=== PATIENT | female | born 1985 | race Caucasian/White ===

== ENCOUNTER 2021-05-26 16:52 | Emergency (ER) | payer OTHER, SELFPAY ==
[2021-05-26 17:05] VITALS: BP 130/84; PULSE 82; RESP 18; TEMP 37.1; O2SAT 98
--- NOTE | 2021-05-26 17:31 | ED.GENADULT ---
HPI - General Adult General Chief complaint: Upper Respiratory Infection Stated complaint: sinus pressure Source: patient Mode of arrival: ambulatory Limitations: no limitations History of Present Illness HPI narrative: 36 y/o female. PMHx: None reported. Presents to [facility] today with acute complaints of sinus congestion, purulent nasal discharge, facial 'pressure' and pain 'behind her teeth' for the past 3-4 weeks. Client reports that she has tried doctoring herself at home with only worsening. No fevers. No JIMENES, sore throat, Otalgia. No cough, chest congestion, chest pain. Pt is without additional acute c/o illness upon PE. Related Data Allergies Allergy/AdvReac Type Severity Reaction Status Date / Time amoxicillin Allergy Unknown Unknown Verified 05/26/21 17:20 Penicillins Allergy Unknown Unknown Verified 05/26/21 17:20 CEPHALEXIN MONOHYDRATE Allergy Unknown Unknown Uncoded 05/26/21 17:20 Review of Systems Review of Systems: CONSTITUTIONAL: Denies fever, chills, sweats. EYES: Denies visual changes, redness, discharge. ENT: Positive rhinorrhea, congestion. No sore throat, otalgia. CARDIOVASCULAR: Denies chest pain, palpitations, edema. RESPIRATORY: Denies dyspnea, wheezing, cough GASTROINTESTINAL: Denies abdominal pain, nausea, vomiting, diarrhea. GENITOURINARY: Denies dysuria, hematuria, abnormal discharge SKIN: Denies rash or itching. MUSCULOSKELETAL: Denies acute back pain, joint pain, or myalgia. NEUROLOGIC: Denies numbness, or focal weakness. PSYCHIATRIC: Denies anxiety or depression. All systems reviewed & are unremarkable except as noted in HPI and below Exam Narrative: GENERAL: This is a well-nourished, well-developed adult, in no apparent distress. HEAD: normocephalic, atraumatic. EYES: PERRL. Sclera clear/white. EARS: External ears normal, auditory canals clear and without drainage, TMs normal. NOSE: External nose normal. Positive Rhinorrhea purulent nasal discharge, maxillary facial pressure, nares patent. THROAT: Mucous membranes moist, posterior pharynx clear. No exudates. NECK: Neck supple, non-tender without lymphadenopathy, masses or thyromegaly. CARDIOVASCULAR: Regular rate and rhythm without murmurs, gallops, or rubs. RESPIRATORY: Clear to auscultation. Breath sounds equal bilaterally. No wheezes, rales, or rhonchi. GASTROINTESTINAL: Abdomen soft, non-tender, nondistended. Bowel sounds are active. No guarding. SKIN: warm, intact with no suspicious lesions or rash, good texture and turgor. NEURO: Alert, active, and age appropriate. No focal neurologic deficits. Course Vital Signs Vital signs: Vital Signs Temperature 37.1 C 05/26/21 17:05 Pulse Rate 82 05/26/21 17:05 Respiratory Rate 18 05/26/21 17:05 Blood Pressure 130/84 05/26/21 17:05 Pulse Oximetry 98 05/26/21 17:05 Temperature 37.1 C 05/26/21 17:05 Pulse Rate 82 05/26/21 17:05 Respiratory Rate 18 05/26/21 17:05 Blood Pressure 130/84 05/26/21 17:05 Pulse Oximetry 98 05/26/21 17:05 Medical Decision Making Differential Diagnosis Differential Diagnosis: Differential Diagnosis: Consideration of the following conditions may be warranted for the presenting problem, they are not final diagnoses: upper respiratory infection, otitis media, sinusitis, RSV viral infection, bronchitis, pharyngitis, Streptococcal sore throat, COVID-19, and other. Medical Records Medical records reviewed: Yes I reviewed the external patient's medical records. Vital Signs Vital Signs: Vital Signs Temperature 37.1 C 05/26/21 17:05 Pulse Rate 82 05/26/21 17:05 Respiratory Rate 18 05/26/21 17:05 Blood Pressure 130/84 05/26/21 17:05 Pulse Oximetry 98 05/26/21 17:05 Temperature 37.1 C 05/26/21 17:05 Pulse Rate 82 05/26/21 17:05 Respiratory Rate 18 05/26/21 17:05 Blood Pressure 130/84 05/26/21 17:05 Pulse Oximetry 98 05/26/21 17:05 Critical Care Time Critical Care T
== END 2021-05-26 17:30 | disposition home or self-care (01) ==
PROVIDERS: Emergency Provider Nurse Practitioner Adult Health; PCP Nurse Practitioner Adult Health
DX: J01.00 Acute maxillary sinusitis, unspecified (principal)
CPT/HCPCS: 99213; G0463

== ENCOUNTER 2021-09-09 12:30 | Emergency (ER) | payer OTHER, SELFPAY ==
[2021-09-09 12:40] VITALS: BP 141/82; PULSE 78; RESP 16; TEMP 37.1; O2SAT 99
--- NOTE | 2021-09-09 12:55 | ED.GENADULT ---
HPI - General Adult General Chief complaint: Dental/Oral Stated complaint: Toothache/Sinus Pain Time Seen by Provider: 09/09/21 12:55 Source: patient Mode of arrival: ambulatory Limitations: no limitations History of Present Illness HPI narrative: 36-year-old female presented for complaint of left lower dental pain for 4 months and over the last 5 days sinus congestion, pressure, left-sided headache and ear pain. Also endorses occasional cough and wheezing. Denies associated nausea, vomiting, diarrhea, fever or chills. Taking Tylenol Sinus and ibuprofen for symptoms. She is scheduled with her dentist in 1 week for extraction. Tooth is broken and crown has come off. She is not vaccinated for COVID or flu, she states she has been tested many times and has a similar symptoms, and always a sinus infection. Related Data Allergies Allergy/AdvReac Type Severity Reaction Status Date / Time amoxicillin Allergy Unknown Unknown Verified 09/09/21 12:49 Penicillins Allergy Unknown Unknown Verified 09/09/21 12:49 CEPHALEXIN MONOHYDRATE Allergy Unknown Unknown Uncoded 05/26/21 17:20 Review of Systems Review of Systems: CONSTITUTIONAL: Denies body aches, fever, chills ENT: Endorses dental pain, rhinorrhea, congestion, otalgia. CARDIOVASCULAR: Denies chest pain, palpitations RESPIRATORY: Endorses cough denies dyspnea. SKIN: Denies rash, itching, or wounds. MUSCULOSKELETAL: Denies myalgia. NEUROLOGIC: Denies headache, numbness, tingling, or weakness. PMFSH Comments At time of signature, I have reviewed and agree with nursing past medical, surgical, social and family history unless otherwise noted. Please see nursing chart for further information. There is no relevant family history pertinent to the presenting complaint Exam Narrative: GENERAL: Appears in pain; ill-appearing HEAD: Normocephalic, atraumatic. EYES: EOMI. No redness or drainage. Conjunctivae normal. ENT: Mucous membranes pink and moist. TMs normal bilateral, canals erythematous. Throat normal. Uvula midline. Left lower dental #18 broken tooth, no apparent abscess formation NECK: Normal AROM. Supple. No lymphadenopathy. CHEST: No respiratory distress. Clear to auscultation. HEART: Regular rate and rhythm. No murmur appreciated. ABDOMEN: Soft, nontender, nondistended, normal active bowel sounds. SKIN: Warm, dry, no rash. Normal skin turgor. NEURO: No focal deficits. Alert and oriented x3. Gait steady. Course Course Emergency Course: Patient is aware of diagnosis, understands and agrees to treatment plan. Anticipatory guidance given. Patient agrees to follow-up as directed and is aware of reasons to seek care at the emergency department. Portions of this record may have been created with voice recognition software Level of Care: Express Care Visit Vital Signs Vital signs: Vital Signs Temperature 98.7 F 09/09/21 12:40 Pulse Rate 78 09/09/21 12:40 Respiratory Rate 16 09/09/21 12:40 Blood Pressure 141/82 H 09/09/21 12:40 Pulse Oximetry 99 09/09/21 12:40 Temperature 98.7 F 09/09/21 12:40 Pulse Rate 78 09/09/21 12:40 Respiratory Rate 16 09/09/21 12:40 Blood Pressure 141/82 H 09/09/21 12:40 Pulse Oximetry 99 09/09/21 12:40 Medical Decision Making MDM Narrative Medical decision making narrative: Patient is scheduled with a dentist in 1 week, will provide antibiotics to cover dental infection as well as sinus infection. She can continue her current [id number] pain remedies. Aware of signs and symptoms to watch for requiring emergent care. Differential Diagnosis Differential Diagnosis: Influenza, covid, sinusitis, OM, strep pharyngitis, URI Vital Signs Vital Signs: Vital Signs Temperature 98.7 F 09/09/21 12:40 Pulse Rate 78 09/09/21 12:40 Respiratory Rate 16 09/09/21 12:40 Blood Pressure 141/82 H 09/09/21 12:40 Pulse Oximetry 99 09/09/21 12:40 Temperature 98.7 F 09/09/21 12:40 Pulse Rate 7
== END 2021-09-09 13:14 | disposition home or self-care (01) ==
PROVIDERS: Emergency Provider Nurse Practitioner Family; PCP Nurse Practitioner Adult Health
DX: K08.89 Other specified disorders of teeth and supporting structures (principal); J06.9 Acute upper respiratory infection, unspecified; N80.9 Endometriosis, unspecified; Z85.41 Personal history of malignant neoplasm of cervix uteri
CPT/HCPCS: 99213; G0463

== ENCOUNTER 2022-07-11 09:18 | Emergency (ER) | payer OTHER, SELFPAY ==
[2022-07-11 09:22] VITALS: BP 132/90; PULSE 89; RESP 16; TEMP 36.5; O2SAT 98
--- NOTE | 2022-07-11 09:27 | ED.NAVMDI ---
HPI - Nausea/Vomiting/Diarrhea General Chief complaint: Nausea/Vomiting/Diarrhea Stated complaint: Fever/Vomiting Time Seen by Provider: 07/11/22 09:36 Source: patient and RN notes reviewed Mode of arrival: ambulatory Limitations: no limitations History of Present Illness HPI Narrative: 37-year-old female presents concern for 4 day history of nausea, vomiting, diarrhea, body aches, chills, sweats, nasal congestion, rhinorrhea, cough. Reports she has been taking [id number] medications with temporary relief of symptoms. She denies known sick contacts MD elicited complaint: nausea and diarrhea Related Data Allergies Allergy/AdvReac Type Severity Reaction Status Date / Time amoxicillin Allergy Unknown Unknown Verified 07/11/22 09:32 cephalexin [From Keflex] Allergy Unknown Unknown Verified 07/11/22 09:32 Penicillins Allergy Unknown Unknown Verified 07/11/22 09:32 Review of Systems Review of Systems: CONSTITUTIONAL: Reports malaise, chills, sweats, fever. EYES: Denies visual changes, redness, or discharge. ENT: Reports rhinorrhea, congestion. Denies sinus pain, otalgia and sore throat. CARDIOVASCULAR: Denies chest pain, palpitations, or edema. RESPIRATORY: Reports cough. Denies dyspnea. GASTROINTESTINAL: Reports abdominal pain, nausea, vomiting, diarrhea SKIN: Denies rash or itching. MUSCULOSKELETAL: Reports myalgia. NEUROLOGIC: Reports headache. All systems reviewed & are unremarkable except as noted in HPI and below [facility] Comments At time of signature, agree with nursing past medical, surgical, social and family history. There is no relevant family history pertinent to the presenting complaint Exam Narrative: GENERAL: Nontoxic-appearing and in no acute distress. HEAD: Normocephalic EYES: PERRLA, conjunctivae clear ENT: Nares clear, turbinates edematous and erythematous, clear discharge. Mucous membranes moist. TM pearly chandler with dull light reflex bilaterally; no tragal tenderness. Oropharynx erythematous without lesions. Tonsils enlarged and without exudate, no drooling, no hoarseness, no trismus, uvula midline. NECK: Supple. No lymphadenopathy CHEST: Clear to auscultation, breath sounds equal. No wheezing, rhonchi, rales, or stridor. No respiratory distress, speaks in full sentences. HEART: Regular rate and rhythm. No murmur heard. SKIN: Warm, dry, no rash. NEURO: Alert and oriented x3. PSYCH: Normal mood and affect Course Course Emergency Course: Patient is aware of diagnosis, understands and agrees to treatment plan. Anticipatory guidance given. Patient agrees to follow-up as directed and is aware of reasons to seek care at the emergency department. Portions of this record may have been created with voice recognition software Level of Care: Express Care Visit Vital Signs Vital signs: Vital Signs Temperature 97.7 F 07/11/22 09:22 Pulse Rate 89 07/11/22 09:22 Respiratory Rate 16 07/11/22 09:22 Blood Pressure 132/90 07/11/22 09:22 Pulse Oximetry 98 07/11/22 09:22 Oxygen Delivery Room Air 07/11/22 09:22 Temperature 97.7 F 07/11/22 09:22 Pulse Rate 89 07/11/22 09:22 Respiratory Rate 16 07/11/22 09:22 Blood Pressure 132/90 07/11/22 09:22 Pulse Oximetry 98 07/11/22 09:22 Oxygen Delivery Room Air 07/11/22 09:22 Reviewed. MDM - Nausea/Vomiting/Diarrhea MDM Narrative Medical decision making narrative: No evidence of pancreatitis, AAA, cholecystitis, choledocholithiasis, cholangitis, mesenteric ischemia, small bowel obstruction, diverticulitis, colitis, appendicitis, or pelvic etiology such as ovarian/testicular torsion, TOA, or ectopic . Patient has no history of peptic ulcer, H. pylori, chronic aspirin NSAID or corticosteroid use, chronic alcohol use, no history of inflammatory bowel disease, no history of active abdominal infection or malignancy. Patient has no history of hernia or intra-abdominal surgeries, patient denies absence of flatus, constipatio
== END 2022-07-11 09:45 | disposition home or self-care (01) ==
PROVIDERS: Emergency Provider Nurse Practitioner
DX: U07.1 COVID-19 (principal)
CPT/HCPCS: 87426; 87804; 99213; C9803; G0463